=== PATIENT | male | born 1980 | race Caucasian/White ===

== ENCOUNTER 2024-12-15 12:42 | Emergency (ER) | payer MEDICARE, SELFPAY ==
[2024-12-15 12:44] VITALS: PULSE 170; RESP 26; O2SAT 98
--- NOTE | 2024-12-15 12:50 | EKG_ITS ---
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
--- NOTE | 2024-12-15 12:50 | PD.EDAMS ---
Altered Mental Status RME/HPI General Chief Complaint: Altered Mental Status Stated Complaint: AMS Time Seen by Provider: 12/15/24 12:47 Arrival date/time: 12/15/24 12:42 RME / HPI RME / HPI narrative: This section includes all my notes and documentations, including HPI, PE, and ED course.? Wale Medina MD HPI: 44 year old male with history of spinal cord tumor s/p resection in 2006 at [facility], on chronic pain management with baclofen presented to the ED BIBA from home for evaluation of altered mental status today. Per medics, family on scene reported the patient had an recent increase in medications and about ~ 30 minutes prior to arrival was found to be altered. When EMS arrived, the patient was unresponsive, cyanotic, and tachycardic at 170 bpm. Noted pupils to be dilated and fire department administered 4 mg IN Narcan without change. They began to assist ventilation and shortly after patient became combative. Prehospital BS 123. On arival to ED, patient is combative, altered, and unable to provide any additional history. Family later arrived and reported a recent change in medication dosages. Patient's Methotrexate was increased from five 2.5 mg tablets to six tablets and increased Meloxicam. Patient previously experienced similar altered mental status and behavior changes with previous medication dosage changes. ROS: Can't obtain from the patient due to current clinical condition. Physical Exam: General:? Patient appears awake. But doesn't look at our eyes and movements and behaviors don't appear purposely. Eyes:? Conjunctivae and lids clear.??PERRL. EOMI. ENT:? No signs of trauma. Neck:? Supple.?? Heart: RRR. Lungs:? No respiratory distress.??Good air movement. No significant rhonchi or wheezing or rales. Abdomen: Soft and NT. Skin:? Warm and dry.?? Neuro:? CN 2-12 grossly normal. No peripheral motor deficits. I reviewed all diagnostic test results. My interpretation of the EKG is?sinus tachycardia (115 bpm) with nonspecific ST-T changes. My review of the chest/abdomen/pelvis CT report is?no hemopericardium, pneumothorax, pulmonary contusion or hemothorax. My review of the head CT report is negative for acute hemorrhage, mass effect or midline shift. Blood tests and urine tests?remarkable for D-Dimer 2990, LA 6.9. At this point, diagnoses include?possible adverse drug interaction with Methotrexate and Meloxicam per Pharmacist. Treatment here included?IVF. Significant improvement noted, patient's mental status returned to baseline and remainted stable. Discussed disposition with patient family, including admission for further care, including more observation. Patient and family declined. Discussed potential risks, including sudden from missing potentially fatal diagnosis. But we couldn't change their mind. Based on my best medical judgment, made decision no further evaluation or treatment indicated at this time.? Patient understands and agrees to the discharge instructions customized and printed, see below. Discharge Instructions from Dr. Medina printed for you: 1. After extensive evaluation, fortunately there is no lengthening condition. Such as stroke or heart attack. 2. But drug interaction between methotrexate and meloxicam may have caused your episode of altered mental status. Avoid taking those medications together. 3. For good hydration and to flush out the medications, increase oral fluid and maintain clear urine. If dark or yellow, increase oral fluid. 4. See a private doctor on 12/16/2024 for recheck and further care. Ask to review all test results and official radiology reports, to make sure you receive all necessary follow-ups and monitoring. To make sure there is no serious underlying heart condition, ask to help you get more tests for your heart that cannot be done here in the ER. Such as Holter Monitor (cardiac monitoring at home from a day to even a month), heart stress test (on treadmill or with medication), echocardiogram (imaging of your heart structures), heart catherization (checking for blockages in your heart arteries), and a referral to see a Flower Cheniller. 5. Seek immediate medical care with worsening or with any concerns. Wale Medina MD Related Data Home Medications ?Medication ?Instructions ?Recorded ?Confirmed acetaminophen 300 mg-codeine 30 mg 1 tab PO TID PRN Pain 12/05/21 12/05/21 tablet baclofen 20 mg tablet 20 mg PO TID 12/05/21 12/05/21 ergocalciferol (vitamin D2) 1,250 1,250 mcg PO QWEEK 12/05/21 12/05/21 mcg (50,000 unit) capsule (Vitamin D2) meloxicam 15 mg tablet 15 mg PO QDAY 12/05/21 12/05/21 methotrexate sodium 2.5 mg tablet 15 mg PO QWEEK 12/05/21 12/05/21 paroxetine HCl 40 mg tablet 40 mg PO QDAY 12/05/21 12/05/21 Previous Rx's ?Medication ?Instructions ?Recorded baclofen 10 mg tablet 20 mg (2 x 10 mg) PO TID #30 tabs 12/05/21 Allergies Allergy/AdvReac Type Severity Reaction Status Date / Time No Known Allergies Allergy Verified 12/02/21 22:03 Review of Systems Review of Systems Systems Reviewed: All systems reviewed, normal except as documented Past Medical History Past Medical History CARDIAC: Negative Congestive Heart Failure RESPIRATORY: Negative Chronic Obstructive Pulmonary Disease (COPD) GENITOURINARY: Negative Renal Disease MUSCULOSKELETAL: Positive Arthritis ENDOCRINE: Negative Diabetes Mellitus Type 1 or Diabetes Mellitus Type 2 Surgical History SURGICAL: Positive of Back Surgery Social History SMOKING STATUS: Unknown if ever smoked ED Exam Narrative Physical exam: As noted in HPI Course Quality Measures none Orders Category Date Time Status Bedside COVID-19 Antigen Test NOW Care 12/15/24 12:48 Completed Bedside Influenza A&B Antigen Test NOW Care 12/15/24 12:48 Completed EKG (ED ONLY) *Do not use* NOW Care 12/15/24 12:50 Completed [place] to [place] Routine Care 12/15/24 12:48 Ordered Saline [Insert IV] NOW Care 12/15/24 12:[address] chest abdomen pelvis wo Stat Exams 12/15/24 12:[address] head/brain wo con Stat Exams 12/15/24 12:51 Completed EKG (ED Only) Stat Exams 12/15/24 12:50 Draft ABG [Arterial Blood Gas] Stat Lab 12/15/24 13:13 Completed Acetaminophen Stat Lab 12/15/24 13:05 Completed Alcohol, Blood Medical Stat Lab 12/15/24 13:05 Completed Ammonia Stat Lab 12/15/24 13:05 Completed Amylase Stat Lab 12/15/24 13:05 Completed BNP [B-Type Natriuretic Peptide] Stat Lab 12/15/24 13:32 Completed Blood Culture (Lab) Stat Lab 12/15/24 13:32 Completed CBC Stat Lab 12/15/24 13:05 Completed CK [Creatine Kinase] Stat Lab 12/15/24 13:05 Completed CMP [Comprehensive Metabolic Panel] Stat Lab 12/15/24 13:05 Completed CRP [C-Reactive Protein] Stat Lab 12/15/24 13:05 Completed D-Dimer Stat Lab 12/15/24 13:05 Completed Drug Screen,Urine Stat Lab 12/15/24 14:22 Completed ESR [Sed Rate (ESR)] Stat Lab 12/15/24 13:05 Completed Lactate (Lactic Acid) Stat Lab 12/15/24 13:05 Completed Lipase Stat Lab 12/15/24 13:05 Completed Magnesium Stat Lab 12/15/24 13:05 Completed PT [Prothrombin Time with INR] Stat Lab 12/15/24 13:05 Completed PTT [Partial Thromboplastin Time] Stat Lab 12/15/24 13:05 Completed Procalcitonin Stat Lab 12/15/24 13:05 Completed Salicylate Stat Lab 12/15/24 13:05 Completed TSH [Thyroid Stimulating Hormone] Stat Lab 12/15/24 13:05 Completed Troponin I Stat Lab 12/15/24 13:05 Completed UA, C/S IF [Urinalysis, C/S if Indicated] Stat Lab 12/15/24 14:22 Completed Etomidate Inj [Amidate Inj] Med 12/15/24 12:49 Discontinued 40 mg IVP X1 ONE LORazepam [Ativan Inj] Med 12/15/24 12:49 Discontinued 2 mg IVP X1 ONE Ondansetron Inj [Zofran Inj] Med 12/15/24 12:49 Discontinued 4 mg IV X1 ONE Sodium Chloride 0.9% 1000 ml [Ns] 1,000 ml Med 12/15/24 12:49 Discontinued IV 999 mls/hr Sodium Chloride 0.9% 1000 ml [Ns] 1,000 ml Med 12/15/24 13:29 Discontinued IV 999 mls/hr Sodium Chloride 0.9% 1000 ml [Ns] 1,000 ml Med 12/15/24 13:29 Discontinued IV 999 mls/hr Succinylcholine Inj [Anectine Inj] Med 12/15/24 12:49 Discontinued 200 mg IV X1 ONE cefTRIAXone [Rocephin] 1,000 mg Med 12/15/24 13:29 Discontinued Sodium Chloride 0.9% (P) [Ns 0.9% (P)] 50 ml IV X1 Vital Signs Vital signs: Vital Signs Temperature 98.4 F 12/15/24 13:00 Pulse Rate 108 H 12/15/24 13:00 Respiratory Rate 21 H 12/15/24 13:00 Blood Pressure 144/106 H 12/15/24 13:00 Pulse Oximetry (%) 97 12/15/24 13:00 Oxygen Delivery Method Room Air 12/15/24 13:00 Pulse ox is 97% on room air which is adequate. Altered Mental Status MDM Narrative MDM Narrative:: IBella, chidi scribing for and in the presence of Dr. Medina. Patient data External records reviewed:: [facility] previous records (I reviewed admission from 12/03/2021 through 12/06/2021) and EMS form Clinical information provided by:: patient, EMS and family Social determinants that could affect healthcare access:: none Patient has the following chronic illnesses:: spinal cord tumor s/p resection in 2006 at [facility], on chronic pain management with baclofen How is presenting disease/condition affected by chronic disease/condition?: exacerbated by Evaluation data The following diagnostics were reviewed and interpreted by me:: lab results, radiology exam(s) and EKG tracing(s) (My interpretation of the EKG is: Sinus tachycardia (115 bpm) with nonspecific ST-T changes. Wale Medina MD) Lab and/or radiology exams considered but not ordered:: None Interpretation Summary: My review of the chest/abdomen/pelvis CT report is?no hemopericardium, pneumothorax, pulmonary contusion or hemothorax. My review of the head CT report is negative for acute hemorrhage, mass effect or midline shift. Medications / Prescriptions Medications or Prescriptions considered but not ordered:: None Medication administrations:: Medication Administration History Discontinued Medications Etomidate (Etomidate Inj 2 Mg/Ml Vial 10 Ml) 40 mg IVP X1 ONE Stop: 12/15/24 12:50 Last Admin: 12/15/24 15:11 Dose: Not Given Documented By: ROSE Non-Admin Reason: Cancelled by Provider Sodium Chloride (Ns) 1,000 mls @ 999 mls/hr IV .Q1H1M ONE Stop: 12/15/24 13:49 Last Infusion: 12/15/24 15:12 Dose: Infused Documented By: Admin: 12/15/24 12:58 Dose: 999 mls/hr Documented By: ROSE Ceftriaxone Sodium 1,000 mg/ (Sodium Chloride) 50 mls @ 100 mls/hr IV X1 ONE Stop: 12/15/24 13:58 Last Admin: 12/15/24 15:57 Dose: Not Given Documented By: VG Non-Admin Reason: Cancelled by Provider Sodium Chloride (Ns) 1,000 mls @ 999 mls/hr IV .Q1H1M ONE Stop: 12/15/24 14:29 Last Admin: 12/15/24 15:31 Dose: Not Given Documented By: VG Non-Admin Reason: Cancelled by Provider Sodium Chloride (Ns) 1,000 mls @ 999 mls/hr IV .Q1H1M ONE Stop: 12/15/24 14:29 Last Admin: 12/15/24 15:32 Dose: Not Given Documented By: VG Non-Admin Reason: Cancelled by Provider Lorazepam (Lorazepam 2 Mg/Ml Vial) 2 mg IVP X1 ONE Stop: 12/15/24 12:50 Last Admin: 12/15/24 12:56 Dose: 2 mg Documented By: VG Ondansetron HCl (Ondansetron Inj 2 Mg/Ml Inj 2 Ml) 4 mg IV X1 ONE; Protocol Stop: 12/15/24 12:50 Last Admin: 12/15/24 15:11 Dose: Not Given Documented By: VG Non-Admin Reason: Cancelled by Provider Succinylcholine Chloride (Succinylcholine Inj 20 Mg/Ml Vial 10 Ml) 200 mg IV X1 ONE Stop: 12/15/24 12:50 Last Admin: 12/15/24 15:11 Dose: Not Given Documented By: VG Non-Admin Reason: Cancelled by Provider Patient given IV fluids and Ativan Consultations Consultation(s) initiated? (list below): No Diagnosis Differential diagnosis altered mental status: alcoholic intoxication, altered mental status, delirium, hypoglycemia, hyponatremia, subarachnoid hemorrhage, sepsis and other (adverse reaction to medication) Most likely diagnosis given after review of the tests above:: Adverse drug interaction with prescription medication Admission Indicated Admission indicated?: not indicated Explain why admission is indicated or not indicated:: Mentation improved, does not meet admission criteria Admission Request Was there a request for admission?: No Disposition Plan Disposition Plan: Discharge Discharge Attestation Discharge Attestation: The patient and all family members were given an opportunity to ask questions and understood the discharge instructions. Discharge instructions specifically effects, indications for sooner follow up or return to the emergency department, and the expected course of current diagnosis. Patient condition: Stable Discharge Plan Plan Patient Disposition: HOME (Self Care) Prescriptions/Referrals Prescriptions/Med Rec: No Action meloxicam 15 mg Tablet 15 mg PO QDAY acetaminophen-codeine 300-30 mg Tablet 1 tab PO TID PRN (Reason: Pain) baclofen 20 mg Tablet 20 mg PO TID methotrexate sodium 2.5 mg Tablet 15 mg PO QWEEK Rx Instructions: TAKE 6 TABLETS ONCE A WEEK ergocalciferol (vitamin D2) [Vitamin D2] 1,250 mcg (50,000 unit) Capsule 1,250 mcg PO QWEEK paroxetine HCl 40 mg Tablet 40 mg PO QDAY baclofen 10 mg Tablet 20 mg PO TID Qty: 30 0RF Referrals: Santos Umaña MD [Primary Care Provider] - In 1 week Problem List Clinical Impression: Adverse drug interaction with prescription medication Patient/Caregiver Discharge Instructions Discharge Activity: activity as tolerated Education Materials: ED Drug Reaction, Other Additional Instructions: Discharge Instructions from Dr. Medina printed for you: 1. After extensive evaluation, fortunately there is no lengthening condition. Such as stroke or heart attack. 2. But drug interaction between methotrexate and meloxicam may have caused your episode of altered mental status. Avoid taking those medications together. 3. For good hydration and to flush out the medications, increase oral fluid and maintain clear urine. If dark or yellow, increase oral fluid. 4. See a private doctor on 12/16/2024 for recheck and further care. Ask to review all test results and official radiology reports, to make sure you receive all necessary follow-ups and monitoring. To make sure there is no serious underlying heart condition, ask to help you get more tests for your heart that cannot be done here in the ER. Such as Holter Monitor (cardiac monitoring at home from a day to even a month), heart stress test (on treadmill or with medication), echocardiogram (imaging of your heart structures), heart catherization (checking for blockages in your heart arteries), and a referral to see a Flower Cheniller. 5. Seek immediate medical care with worsening or with any concerns. Print Language: French Stand Alone Forms: Linda Award Info., Patient Portal Info Letter
--- NOTE | 2024-12-15 12:51 | XR_ITS ---
Examination: CT chest, without intravenous contrast. CT abdomen, without intravenous contrast. CT pelvis, without intravenous contrast. 2-D sagittal and coronal reconstructions. 3-D reconstructions. Date and time of exam:December 15, 2024 1432 hours INDICATIONS: Patient fell today with into the chest and abdomen, chest pain abdomen pain CTDI vol (mgy) 16.5 DLP (MGycm)1409 Technique: Multiple CT images, 3.0 mm slice thickness, obtained chest, abdomen, pelvis, with the high-resolution 64 slice scanner.. Sagittal and coronal 2-D reconstructions are obtained. 3-D reconstructions Low dose protocols were performed. One or more of the following dose reduction techniques were used; automated exposure control, adjustment of the mA and/or KV according to patient size, use of iterative reconstruction technique. Findings: Thoracic aorta pulmonary arteries intact No hemopericardium No pneumothorax pulmonary contusion or hemothorax The manubrium the body the sternum thoracic vertebral bodies intact Ribs appear intact No liver splenic or renal laceration, no perinephric hematoma Abdominal aorta intact No free blood in the abdomen Negative for pneumoperitoneum Normal appendix Urinary bladder intact Abundant stool in the rectum No prostatomegaly Hips bones of the pelvis lumbar vertebral bodies intact Mild soft tissue contusion left flank for instance axial image 250 IMPRESSION: Mild soft tissue contusion left flank Thoracic aorta pulmonary arteries intact No hemopericardium, pneumothorax, pulmonary contusion or hemothorax No abdominal parenchymal laceration Abdominal aorta intact No free blood in the abdomen or pelvis Osseous structures appear intact
--- NOTE | 2024-12-15 12:51 | XR_ITS ---
Examination: CT brain head without contrast. 2-D sagittal coronal reconstructions Date and time of exam:December 15, 2024 1428 hours Comparison December 02, 2021 INDICATIONS: Patient fell today with injury to the head, head pain altered mental status CTDI: vol (mGy):55.6 DLP: (mGycm):1138 Technique: Multiple CT axial sections of the brain have been obtained, 5 mm slice thickness. Contrast has not been administered. 2-D sagittal, coronal reconstructions have been obtained Low dose protocols were performed. One or more of the following dose reduction techniques were used; automated exposure control, adjustment of the mA and/or KV according to patient size, use of iterative reconstruction technique. Findings: No significant ventricular enlargement. Intra-axial or extra-axial hemorrhage density is not seen. No mass effect or midline shift Basal cisterns are not remarkable. Fourth ventricle is midline. Cranial vault intact. Impression: Negative for acute hemorrhage, mass effect or midline shift
[2024-12-15] MEDS: LORazepam 2 MG/ML VIAL IVP (12:56)
[2024-12-15] MEDS: SODIUM CHLORIDE 0.9% 1000 ML 1,000 ML 999 ML IV (12:58)
[2024-12-15 13:00] VITALS: BP 144/106; PULSE 108; RESP 21; TEMP 36.9; O2SAT 97
[2024-12-15 13:02] VITALS: BP 102/79; PULSE 102; RESP 19; O2SAT 94
[2024-12-15 13:05] VITALS: BMI 33.9
[2024-12-15 13:16] LABS: Base Excess 0 (-3-3); HCO3 27 mEq/L (20-26); Inspired Oxygen, FIO2 21 %; O2 Saturation 85 % (91-98); PCO2 52 mmHg (32.0-48.0); pH, Arterial 7.32 (7.35-7.45)
[2024-12-15 13:21] LABS: Allen Test Performed/OK; PO2 53 mmHg (83-108); Puncture Site Right Radial
[2024-12-15 13:22] LABS: Lactate (Lactic Acid) 6.9 mMol/L (0.4-2.0)
[2024-12-15 13:43] LABS: Ammonia 38 uMol/L (11-32)
--- NOTE | 2024-12-15 13:45 | PC.NURSE ---
Pt BIBA from home. Per family pt was eating and suddenly went unresponsive, fire gave 4mg of narcan IN, pt did not respond, was found by EMS unresponsive and cyanotic, pt brought in being bagged and combative. Pharmacist on phone with change nurse to notify pt had recent change in medication dose. Rx for methotrexate was increased from 5 tabs of 2.5mg to 6 tabs of 2.5mg and pt was warned of potential interaction with Rx or meloxican. Poison control called and notified. Per poison control. I don't think an interaction between those two would cause the pt to go unresponsive. Please run a tylenol level and call back if it comes back high. Per family pt also has a medcation pump for baclofen which malfunctioned and caused a similar epsiode in the past.
[2024-12-15 13:52] LABS: Acetaminophen < 2.0 mcg/mL (10.0-20.0); Alanine Aminotransferase 32 U/L (10-49); Albumin, Serum 5.4 gm/dL (3.5-5.0); Albumin/Globulin Ratio 1.7 (1.2-2.2); Alcohol, Blood Medical < 3.0 mg/dL (0-10.0); Alkaline Phosphatase 121 U/L (46-116); Amylase 61 U/L (30-118); Anion Gap 12 (7-16); Aspartate Amino Transferase 30 U/L (0-34); BUN/Creatinine Ratio 15 Ratio (12-20); Basophils % (Auto) 1 % (0-2.5); Bilirubin,Total 0.5 mg/dL (0.3-1.2); Blood Urea Nitrogen 15 mg/dL (9-23); C-Reactive Protein 2.1 mg/dL (0.0-0.9); Calcium 10.4 mg/dL (8.3-10.6); Calcium (Corrected) 10.4 mg/dL (8.5-10.1); Carbon Dioxide 28.6 mMol/L (20.0-31.0); Chloride 97 mMol/L (98-107); Creatine Kinase 128 U/L (34-171); Eosinophils # (Auto) 0.2 Thou/mm3 (0.0-0.5); Eosinophils % (Auto) 2 % (0-10); Estimated Creatinine Clearance 100.8 mL/min (>60); Globulin 3.2 gm/dL (2.3-3.5); Glucose 123 mg/dL (74-106); Hematocrit 47.6 % (41.0-53.0); Hemoglobin 15.7 g/dL (13.5-16.0); Immature Granulocytes % (Auto) 0 % (0-0); Immature Granulocytes Auto 0.02 Thou/mm3 (0.00-0.00); Lipase 37 U/L (12-53); Lymphocytes # (Auto) 2.9 Thou/mm3 (1.0-4.8); Lymphocytes % (Auto) 34 % (10-50); Magnesium 2.1 mg/dL (1.6-2.6); Mean Corpuscular Hemoglobin 32.3 pg (25.0-35.0); Mean Corpuscular Volume 98 fL (80-100); Monocytes # (Auto) 0.6 Thou/mm3 (0.0-0.8); Monocytes % (Auto) 7 % (0-12); Neutrophils # (Auto) 4.8 Thou/mm3 (1.8-7.7); Neutrophils % (Auto) 56 % (37-80); Nucleated Red Blood Cell % 0 /100 WBC (0); Osmolality,Calculated 277 (275-295); Platelet Count 312 Thou/mm3 (140-440); Potassium 4.4 mMol/L (3.4-5.1); Procalcitonin 0.06 ng/ml (0.0-0.49); RDW Standard Deviation 47.8 fL (35.1-43.9); Red Blood Count 4.86 Miln/mm3 (4.50-5.90); Salicylate < 3.0 mg/dL; Sodium 138 mMol/L (136-145); Thyroid Stimulating Hormone 4.44 uIU/mL (0.55-4.78); Total Protein 8.6 gm/dL (5.7-8.2); Troponin I < 0.020 ng/mL (0.0-0.045); White Blood Count 8.5 Thou/mm3 (3.8-10.6); eGFR > 60 See Note
[2024-12-15 14:07] LABS: B-Type Natriuretic Peptide < 20 pg/mL (0-100)
[2024-12-15 14:11] LABS: Sed Rate (ESR) 12 mm/hr (0-15)
[2024-12-15 14:18] LABS: Prothrombin Time 10.9 Seconds (9.0-12.2)
[2024-12-15 14:44] LABS: Collection Type, Urine Clean Catch; WBC,Urine 0 /hpf (0-5)
[2024-12-15 14:58] LABS: Bilirubin,Urine Negative (Negative); Blood,Urine 2+ (Negative); Clarity,Urine Clear (Clear/Hazy); Color,Urine Lt-Yellow (Lt Yel-Yel); Culture Indicated,Urine Not Indicated; Glucose, Urine Negative (Negative); Ketones,Urine Negative (Negative); Leukocyte Esterase,Urine Negative (Negative); Nitrite,Urine Negative (Negative); PH,Urine 6.5 (5.0-7.0); Protein,Urine Negative (Neg - Trace); RBC,Urine 8 /hpf (0-3); Specific Gravity,Urine 1.012 (1.001-1.035); Squamous Epithelial Cell,Urine < 1 /hpf (0-5); Urobilinogen,Urine Negative mg/dL (0.0-1.0)
[2024-12-15 15:01] LABS: Amphetamine/Methamp Scrn,U Negative (Negative); Barbiturate Screen,Urine Negative (Negative); Benzodiazepines Screen,Urine Negative (Negative); Benzoylecgonine Screen, Ur Negative (Negative); Fentanyl Screen,Urine Negative (Negative); Opiate Screen,Urine Negative (Negative); THC Screen,Urine Negative (Negative)
[2024-12-15 15:20] LABS: D-Dimer 2990 ng/mL (<600)
[2024-12-15 16:19] LABS: Reflex Lactate? Y
[2024-12-15 16:23] VITALS: BP 125/86; PULSE 97; RESP 14; TEMP 36.6; O2SAT 96
[2024-12-15 16:44] VITALS: BP 125/86; PULSE 97; RESP 20; TEMP 36.1; O2SAT 100
== END 2024-12-15 16:45 | disposition home or self-care (01) ==
PROVIDERS: Emergency Provider Emergency Medicine; PCP Family Medicine
DX: R00.0 Tachycardia, unspecified (principal); T42.8X5A Adverse effect of antiparkinsonism drugs and other central muscle-tone depressants, initial encounter; S09.90XA Unspecified injury of head, initial encounter; R07.9 Chest pain, unspecified; R10.9 Unspecified abdominal pain; W19.XXXA Unspecified fall, initial encounter
CPT/HCPCS: 36415; 36600; 70450; 71250; 74176; 80053; 80307; 80320; 80329; 81001; 82140; 82150; 82550; 82803; 83605; 83690; 83735; 83880; 84145; 84443; 84484; 85025; 85379; 85610; 85652; 85730; 86140; 87040; 87400; 87811; 93005; 96360; 96361; 99284; J2060; J7030; G0480

== ENCOUNTER → 2025-03-03 | Outpatient (CLI) | payer MEDICARE, MEDICAID, SELFPAY | END | disposition home or self-care (01) | PROVIDERS: PCP Family Medicine; Referring Provider Family Medicine; Visit Provider Family Medicine | DX: Z01.89 Encounter for other specified special examinations (principal) | CPT/HCPCS: 95816 ==

== ENCOUNTER 2025-05-12 09:40 | Day surgery (SDC) | payer MEDICARE, MEDICAID, SELFPAY ==
[2025-05-12] VITALS (10 sets, daily range): BP systolic 105–152; BP diastolic 81–101; PULSE 66–87; RESP 15–18; TEMP 36.1–36.8; O2SAT 95–99; BMI 38.7
[2025-05-12] MEDS: bisacodyL 10 MG SUPP PR (11:30)
[2025-05-12] MEDS: MIDAZOLAM INJ 1 MG/ML VIAL 2 ML (ASD USE ONLY) 2 MG IVP (13:06)
[2025-05-12] MEDS: RINGERS LACTATED 1000 ML 1,000 ML 125 ML IV (13:06)
[2025-05-12] MEDS: fentaNYL CIT INJ 50 mCg/ML AMP 2ML (ASD USE ONLY) IVP (13:06)
--- NOTE | 2025-05-12 15:41 | SUR.PHASEII ---
1328: Pt received for recovery. Report for Yennifer ROBERTS. Pt groggy, but awake. Resp even, unlabored. VS stable. Denies pain. 1340: Pt requested a urinal and voided 300cc clear pale yellow urine. 1400: Pt fully awake, oriented x3. VS stable. Sitting up tolerating po fluids with no difficulty swallowing and no n/v. 1420: Pt had requested urinal again. Voided 225cc clear pale yellow urine. Pt paraplegic. Assisted with dressing and assisted to his wheelchair. Ambulation steady for condition. Pt and parents stated understanding of discharge instructions. Pt discharged from [facility] in stable condition.
== END 2025-05-12 14:20 | disposition home or self-care (01) ==
PROVIDERS: PCP Family Medicine; Referring Provider Internal Medicine Gastroenterology; Visit Provider Internal Medicine Gastroenterology
PROC: 0DBE8ZX Excision of Large Intestine, Via Natural or Artificial Opening Endoscopic, Diagnostic (ICD-10-PCS; CPT 45380; principal; 2025-05-12 11:15)
DX: K52.9 Noninfective gastroenteritis and colitis, unspecified (principal); K64.9 Unspecified hemorrhoids
CPT/HCPCS: 45380; J2250; J3010; J7120; A9270

== ENCOUNTER 2025-05-16 14:52 | Emergency (ER) | payer MEDICARE, MEDICAID, SELFPAY ==
[2025-05-16 14:58] VITALS: BP 164/109; PULSE 94; RESP 22; TEMP 37; O2SAT 96
[2025-05-16 15:22] VITALS: PULSE 88; RESP 18; O2SAT 91; BMI 38.0
[2025-05-16 15:28] VITALS: BP 146/97; PULSE 97; RESP 24; TEMP 36.9; O2SAT 91
--- NOTE | 2025-05-16 15:37 | PC.NURSE ---
Patient presents to ED via ambulance from home for altered mental status. Patient upon arrival to ED is gcs 15. Patient does not recall events/situation for arrival to ED. Per EMS,family called informed patient was at home per parents was speaking repetitive questions. Patient with hx of spinal tumor and inablility to move madan lower extremities without assistance, uses walker at home for small ambulation purpose. Patient updated with plan of care, call light placed within reach.
--- NOTE | 2025-05-16 16:01 | XR_ITS ---
Examination: AP chest single view TECHNIQUE: AP portable semiupright chest single view Date and time: May 16, 2025, 1609 hours INDICATIONS: Chest pain shortness of breath today. FINDINGS: Severe thoracic dextroscoliosis. Normal heart size. No pneumonia or pulmonary edema IMPRESSION: No pneumonia or pulmonary edema
[2025-05-16 16:27] LABS: Lactate (Lactic Acid) 1.9 mMol/L (0.4-2.0)
--- NOTE | 2025-05-16 16:31 | PD.EDAMS ---
Altered Mental Status RME/HPI General Chief Complaint: Altered Mental Status Stated Complaint: AMS Time Seen by Provider: 05/16/25 16:01 Arrival date/time: 05/16/25 14:52 Limitations: no limitations RME / HPI RME / HPI narrative: 44 year old male with history of spinal cord tumor status post resection in 2006 at [facility], chronic bilateral lower extremity weakness, chronic pain on Baclofen pump, presents to the ED BIBA from home for evaluation of altered mental status. Patient reports he does not know why he is here and only remembers the medics entering his room. Patient has no pain or complaints. Denies headache. States he does not recall what occurred or this morning. Patients mother provides additional history. Reports they heard a noise coming from patients room and found him moving back and forth and moaning while laying on his bed. State he was only responding yeah when asked questions, prompting calling 911. Mother denied any history of similar symptoms or previous seizures. Related Data Home Medications ?Medication ?Instructions ?Recorded ?Confirmed acetaminophen 300 mg-codeine 30 mg 1 tab PO TID PRN Pain 12/05/21 12/05/21 tablet Held on 05/12/25. Instructions: Resume on 05/13/25. baclofen 20 mg tablet 20 mg PO TID 12/05/21 12/05/21 ergocalciferol (vitamin D2) 1,250 1,250 mcg PO QWEEK 12/05/21 12/05/21 mcg (50,000 unit) capsule (Vitamin D2) meloxicam 15 mg tablet 15 mg PO QDAY 12/05/21 12/05/21 methotrexate sodium 2.5 mg tablet 15 mg PO QWEEK 12/05/21 12/05/21 paroxetine HCl 40 mg tablet 40 mg PO QDAY 12/05/21 12/05/21 Previous Rx's ?Medication ?Instructions ?Recorded baclofen 10 mg tablet 20 mg (2 x 10 mg) PO TID #30 tabs 12/05/21 Allergies Allergy/AdvReac Type Severity Reaction Status Date / Time No Known Allergies Allergy Verified 05/16/25 15:28 Review of Systems Review of Systems Systems Reviewed: All systems reviewed, normal except as documented Past Medical History Past Medical History NEUROLOGIC: Positive Spinal Cord Injury (tumor); Negative Seizures CARDIAC: Negative Congestive Heart Failure RESPIRATORY: Negative Chronic Obstructive Pulmonary Disease (COPD) GENITOURINARY: Negative Renal Disease MUSCULOSKELETAL: Positive Musculoskeletal Disorders and Arthritis ENDOCRINE: Negative Diabetes Mellitus Type 1 or Diabetes Mellitus Type 2 PSYCHO/SOCIAL: Positive Depression and Anxiety OTHER HISTORY: Negative Blood Transfusions, Blood Transfusion Reaction or Anesthesia Reactions Social History SMOKING STATUS: Never smoker ED Exam General Limitations: Present no limitations General appearance: Present alert and in no apparent distress Head Head exam: Present atraumatic, normocephalic and normal inspection Eye Eye exam: Present normal appearance, PERRL and EOMI ENT ENT exam: Present normal exam, normal oropharynx and mucous membranes moist Neck Neck exam: Present normal inspection, full ROM and trachea midline Chest Chest inspection: Present normal inspection and symmetric chest wall rise Respiratory Respiratory exam: Present normal lung sounds bilaterally Cardiovascular Cardiovascular exam: Present regular rate, normal rhythm and normal heart sounds Abdominal Exam Abdominal exam: Present soft and normal bowel sounds Extremities Exam Extremities exam: Present other (Equal lower extremity weakness ) Back Exam Back exam: Present normal inspection and full ROM Neurological Exam Neurological exam: Present alert, oriented X3, CN II-XII intact and other (Equal lower extremity weakness ) Psychiatric Psychiatric exam: Present normal affect and normal mood Skin Skin exam: Present warm, dry, intact and normal color Course Quality Measures none Orders Category Date Time Status CXRP [XR chest 1V portable] Stat Exams 05/16/25 16:01 Completed BNP [B-Type Natriuretic Peptide] Stat Lab 05/16/25 16:17 Completed CBC [CBC] Stat Lab 05/16/25 16:17 Completed CK [Creatine Kinase] Stat Lab 05/16/25 16:17 Completed CMP [Comprehensive Metabolic Panel] Stat Lab 05/16/25 16:17 Completed Lactate (Lactic Acid) Stat Lab 05/16/25 16:17 Completed Troponin I Stat Lab 05/16/25 16:17 Completed UA, C/S IF [Urinalysis, C/S if Indicated] Stat Lab 05/16/25 16:14 Completed VBG [Venous Blood Gas] Stat Lab 05/16/25 16:17 Completed Vital Signs Vital signs: Vital Signs Temperature 98.6 F 05/16/25 14:58 Pulse Rate 94 05/16/25 14:58 Respiratory Rate 22 H 05/16/25 14:58 Blood Pressure 164/109 H 05/16/25 14:58 Pulse Oximetry (%) 96 05/16/25 14:58 Oxygen Delivery Method Nasal Cannula 05/16/25 14:58 Oxygen Flow Rate 6 05/16/25 14:58 Altered Mental Status MDM Narrative MDM Narrative:: Bella Ingram am scribing for and in the presence of Dr. Holden. Assessment: Altered mental status, transient which mMay be postictal in nature, though medication side effect is also a consideration. First-time seizure, unclear etiology Plan: Labs including lactic acid and creatine kinase to evaluate for seizure-related metabolic changes or rhabdomyolysis, imaging, no antiepileptic medication started at this time, given this may represent a first-time provoked seizure. Recommended outpatient follow-up. Patient data External records reviewed:: [facility] previous records (I reviewed ED visit on 12/15/2024 ) and EMS form Clinical information provided by:: patient, EMS and parent Social determinants that could affect healthcare access:: none Patient has the following chronic illnesses:: spinal cord tumor status post resection in 2006 at [facility], chronic bilateral lower extremity weakness, chronic pain on Baclofen pump How is presenting disease/condition affected by chronic disease/condition?: exacerbated by Evaluation data The following diagnostics were reviewed and interpreted by me:: lab results and radiology exam(s) Lab and/or radiology exams considered but not ordered:: None Interpretation Summary: Ordering Physician: Jolie Tillman MD Date of Service: 05/16/25 Procedure(s): XR chest 1V portable Accession Number(s): [id number] cc: Jolie Tillman MD; Hernandez Anton PA-C; Ulysses Richards MD~ Examination: AP chest single view TECHNIQUE: AP portable semiupright chest single view Date and time: May 16, 2025, 1609 hours INDICATIONS: Chest pain shortness of breath today. FINDINGS: Severe thoracic dextroscoliosis. Normal heart size. No pneumonia or pulmonary edema IMPRESSION: No pneumonia or pulmonary edema Dictated By: Ulysses Richards MD Signed By: <Electronically signed by Ulysses Richards MD in OV> 05/16/25 1705 Medications / Prescriptions Medications or Prescriptions considered but not ordered:: None Medication administrations:: None Consultations Consultation(s) initiated? (list below): No Diagnosis Differential diagnosis altered mental status: alcoholic intoxication, altered mental status, dementia, hypoglycemia and sepsis Most likely diagnosis given after review of the tests above:: Altered mental status Admission Indicated Admission indicated?: not indicated Admission Request Was there a request for admission?: No Disposition Plan Disposition Plan: Discharge Discharge Attestation Discharge Attestation: The patient and all family members were given an opportunity to ask questions and understood the discharge instructions. Discharge instructions specifically effects, indications for sooner follow up or return to the emergency department, and the expected course of current diagnosis. Patient condition: Stable Discharge Plan Plan Patient Disposition: HOME (Self Care) Prescriptions/Referrals Prescriptions/Med Rec: No Action meloxicam 15 mg Tablet 15 mg PO QDAY acetaminophen-codeine 300-30 mg Tablet 1 tab PO TID PRN (Reason: Pain) baclofen 20 mg Tablet 20 mg PO TID methotrexate sodium 2.5 mg Tablet 15 mg PO QWEEK Rx Instructions: TAKE 6 TABLETS ONCE A WEEK ergocalciferol (vitamin D2) [Vitamin D2] 1,250 mcg (50,000 unit) Capsule 1,250 mcg PO QWEEK paroxetine HCl 40 mg Tablet 40 mg PO QDAY baclofen 10 mg Tablet 20 mg PO TID Qty: 30 0RF Referrals: Hernandez Anton PA-C [Primary Care Provider] - In 1 week Problem List Clinical Impression: Altered mental status Patient/Caregiver Discharge Instructions Education Materials: ED ALOC, ED Confusion Additional Instructions: You need to follow-up with your primary care doctor You need to get referred to neurology for EEG You are to be investigated for possibility of seizures Print Language: Jamaican Stand Alone Forms: Linda Award Info., Patient Portal Info Letter
[2025-05-16 16:32] LABS: Collection Type, Urine Clean Catch; Squamous Epithelial Cell,Urine 0 /hpf (0-5)
[2025-05-16 16:32] LABS: Basophils % (Auto) 0 % (0-2.5); Eosinophils # (Auto) 0.1 Thou/mm3 (0.0-0.5); Eosinophils % (Auto) 1 % (0-10); Hematocrit 43.3 % (41.0-53.0); Hemoglobin 15.2 g/dL (13.5-16.0); Immature Granulocytes % (Auto) 0 % (0-0); Immature Granulocytes Auto 0.01 Thou/mm3 (0.00-0.00); Lymphocytes % (Auto) 17 % (10-50); Mean Corpuscular HGB Conc 35.1 g/dl (31.0-37.0); Mean Corpuscular Hemoglobin 32.1 pg (25.0-35.0); Mean Corpuscular Volume 91 fL (80-100); Monocytes # (Auto) 0.4 Thou/mm3 (0.0-0.8); Monocytes % (Auto) 6 % (0-12); Neutrophils # (Auto) 4.7 Thou/mm3 (1.8-7.7); Neutrophils % (Auto) 76 % (37-80); Nucleated Red Blood Cell % 0 /100 WBC (0); Platelet Count 222 Thou/mm3 (140-440); RDW Standard Deviation 42.4 fL (35.1-43.9); Red Blood Count 4.74 Miln/mm3 (4.50-5.90); White Blood Count 6.2 Thou/mm3 (3.8-10.6)
[2025-05-16 16:55] LABS: Alanine Aminotransferase 35 U/L (10-49); Albumin, Serum 4.6 gm/dL (3.5-5.0); Albumin/Globulin Ratio 1.4 (1.2-2.2); Alkaline Phosphatase 122 U/L (46-116); Anion Gap 8 (7-16); Aspartate Amino Transferase 32 U/L (0-34); BUN/Creatinine Ratio 9 Ratio (12-20); Bilirubin,Total 0.4 mg/dL (0.3-1.2); Blood Urea Nitrogen 8 mg/dL (9-23); Calcium 9.5 mg/dL (8.3-10.6); Calcium (Corrected) 9.5 mg/dL (8.5-10.1); Chloride 104 mMol/L (98-107); Creatine Kinase 247 U/L (34-171); Creatinine (Component) 0.9 mg/dL (0.6-1.3); Estimated Creatinine Clearance 126.7 mL/min (>60); Globulin 3.2 gm/dL (2.3-3.5); Glucose 99 mg/dL (74-106); Osmolality,Calculated 277 (275-295); Potassium 3.9 mMol/L (3.4-5.1); Sodium 140 mMol/L (136-145); Total Protein 7.8 gm/dL (5.7-8.2); Troponin I < 0.020 ng/mL (0.0-0.045); eGFR > 60 See Note
[2025-05-16 17:06] LABS: Bilirubin,Urine Negative (Negative); Blood,Urine 2+ (Negative); Color,Urine Lt-Yellow (Lt Yel-Yel); Culture Indicated,Urine Not Indicated; Glucose, Urine Negative (Negative); Ketones,Urine Negative (Negative); Leukocyte Esterase,Urine Negative (Negative); Nitrite,Urine Negative (Negative); Protein,Urine Trace (Neg - Trace); RBC,Urine 48 /hpf (0-3); Urobilinogen,Urine Negative mg/dL (0.0-1.0); WBC,Urine 1 /hpf (0-5)
[2025-05-16 17:09] LABS: Clarity,Urine Hazy (Clear/Hazy); Sperm,Urine Present
[2025-05-16 17:31] LABS: B-Type Natriuretic Peptide < 20 pg/mL (0-100)
[2025-05-16 17:39] LABS: Base Excess, Venous 3 (-3-3); O2 Saturation, Venous 84 % (96-97); PCO2, Venous 52 mmHg (36-56); PO2, Venous 49 mmHg (15-58); pH, Venous 7.37 (7.33-7.66)
[2025-05-16 18:26] VITALS: BP 146/97; PULSE 77; RESP 16; O2SAT 96
== END 2025-05-16 18:26 | disposition home or self-care (01) ==
PROVIDERS: Emergency Provider Emergency Medicine; PCP Student in an Organized Health Care Education/Training Program
DX: R41.82 Altered mental status, unspecified (principal); R07.9 Chest pain, unspecified; R06.02 Shortness of breath
CPT/HCPCS: 36415; 71045; 80053; 81001; 82550; 82803; 83605; 83880; 84484; 85025; 99283

== ENCOUNTER → 2025-07-05 | Outpatient (CLI) | payer MEDICARE, MEDICAID, SELFPAY ==
--- NOTE | 2025-07-05 09:00 | XR_ITS ---
Examination: MRI cervical spine, without intravenous contrast. MRI cervical spine , with intravenous contrast. Exam date and time: July 05, 2025 1019 hours INDICATIONS: History malignant neoplasm thoracic cord posterior surgery 2006, unable to walk Technique: Multiple axial, sagittal and coronal images of the cervical spine have been obtained with the Siemens high-resolution 1.5 Usha MRI scanner. Images obtained included T2 weighted fat suppressed sagittal sections, TR 3500, TE 46, T2 weighted coronal fat suppressed images, TR 3050, TE 84, T2-weighted transverse fat suppressed images, TR 30-60, TE 63, proton density transverse images, TR 4720, TE 46, and T1 weighted coronal images, TR 560, TE 13. Axial, sagittal and coronal images are obtained post intravenous injection 20 cc gadolinium. Findings: Adequate alignment cervical vertebral bodies No cervical fracture Diffuse cervical disc desiccation Postcontrast images demonstrate no abnormal osseous epidural or cervical cord enhancement C3-C4 advanced bilateral neural foraminal stenosis C4-C5 advanced bilateral neural foraminal stenosis C5-C6 advanced right neural foraminal stenosis Severely atrophic cervical cord, with syrinx cavity extending from the odontoid to the upper dorsal spine, AP dimension measuring up to 3 mm IMPRESSION: Neural foraminal stenosis as above No abnormal osseous epidural or cervical cord enhancement Severely atrophic cervical cord with extensive syrinx cavity measuring up to 3 mm in AP dimension
--- NOTE | 2025-07-05 09:45 | XR_ITS ---
Examination: MRI of brain without intravenous contrast. MRI brain with intravenous contrast. Date and time of exam:July 05, 2025 1019 hours Diagnosis malignant neoplasm spinal cord post surgical removal 2007,vi back pain numbness in the extremities difficulty urinating months Technique: Multiple axial and sagittal images of the brain to been obtained. Siemens high-resolution 1.52 Usha short bore scanner utilized. Sagittal sections, T1 weighted images, TR 500, TE 14, are performed. Axial sections proton-density and T2-weighted images have been obtained. Inversion recovery axial images, TR 9260, TE 111, TR 2500. Diffusion weighted images, axial sections, TR 4800, TE 128, B value 1000. Axial sections, ADC map, TR 4800, TE 128. Axial and coronal images were also obtained post 20 cc gadolinium administered intravenously. Findings:: Enlargement of the sella turcica is not present. The optic chiasm and infundibular stalk are not remarkable. There is no localized enlargement of the medulla or freddy. Fourth ventricle and cerebellar tonsils appear normal in position. No subacute area of hemorrhage density is seen. Fourth ventricle is midline. Mass in the cerebellopontine angle region is not evident. 7th and 8th nerve complexes exhibit symmetry Globes are symmetrical Orbital musculature including medial lateral rectus muscles do not exhibit abnormality Punctate focus increased signal left frontal white matter FLAIR image 13 and left occipital white matter FLAIR image 13 Effacement of the cortical sulcal markings is not identified. Mass effect upon the ventricular system is not identified. Diffusion-weighted images demonstrate no focus of restricted diffusion Contrast images demonstrate no definite abnormal enhancement Impression: Negative for acute hemorrhage mass effect or midline shift No acute infarct No definite abnormal enhancing cerebellar or cerebral lesions
== END | disposition home or self-care (01) ==
LOC: SMRI 08:59
PROVIDERS: PCP Student in an Organized Health Care Education/Training Program; Referring Provider Student in an Organized Health Care Education/Training Program; Visit Provider Student in an Organized Health Care Education/Training Program
DX: M48.02 Spinal stenosis, cervical region (principal); M48.8X2 Other specified spondylopathies, cervical region
CPT/HCPCS: 70553; 72156; A9577

== ENCOUNTER → 2025-08-05 | Outpatient (CLI) | payer MEDICARE, MEDICAID, SELFPAY ==
--- NOTE | 2025-08-05 08:00 | XR_ITS ---
Examination: MRI the thoracic spine, without intravenous contrast. MRI thoracic spine , with intravenous contrast. Exam date and time: August 05, 2025 0814 hours INDICATIONS: Mid back pain 15 years, history tumor removal T1-T3 N2 thousand 7 Technique: Multiple axial, sagittal and coronal images of the thoracic spine have been obtained with the Siemens high-resolution 1.5 Usha MRI scanner. Images obtained included T2 weighted fat suppressed sagittal sections, TR 3500, TE 46, T2 weighted coronal fat suppressed images, TR 3050, TE 84, T2-weighted transverse fat suppressed images, TR 30-60, TE 63, proton density transverse images, TR 4720, TE 46, and T1 weighted coronal images, TR 560, TE 13. Axial, sagittal and coronal images are obtained post intravenous injection 20 cc gadolinium. Findings: Manufacturing Scheduler film demonstrates thoracic dextroscoliosis 30 degrees No thoracic vertebral body compression fracture Syrinx cavity thoracic cord AP dimension at least 2.5 mm, at the sinus cavity extending from the upper thoracic cord to the conus medullaris Normal minimal enhancement right pedicle T3 vertebral body axial image 20 No focal thoracic disc protrusion impinging upon the thoracic cord IMPRESSION: Severe thoracic dextroscoliosis Thoracic cord syrinx Minimal 4 mm enhancement right pedicle of T3 vertebral body, recommend 3 month follow-up MRI thoracic cord pre and postcontrast
== END | disposition home or self-care (01) ==
PROVIDERS: PCP Student in an Organized Health Care Education/Training Program; Referring Provider Student in an Organized Health Care Education/Training Program; Visit Provider Student in an Organized Health Care Education/Training Program
DX: M41.84 Other forms of scoliosis, thoracic region (principal); C72.0 Malignant neoplasm of spinal cord
CPT/HCPCS: 72157; A9577